=== PATIENT | male | born 1985 | race Caucasian/White ===

== ENCOUNTER → 2021-11-20 | Outpatient (CLI) | payer OTHER ==
[~2021-11-20] MED LIST: CEPH500 PO; CYCL10 PO; HYDACE5 PO; NAPR500 PO; OXYACE5T PO; PENVK500 PO; RXOXYACE PO; RXSULTRIDS PO; SULTRIDS PO
== END ==
LOC: LAB SHORT 14:57 → LAB 14:57 → LAB FUT 11-20 14:00 → EDSTATUS 11-20 14:00
DX: F11.20 Opioid dependence, uncomplicated (principal)
CPT/HCPCS: G0480

== ENCOUNTER 2023-07-15 13:28 | Emergency (ER) | payer OTHER ==
[~2023-07-15] VITALS: Ht 170.2 cm; Wt 131.5 kg
[2023-07-15 13:41] VITALS: BP 157/89
[2023-07-15] MEDS ORDERED: Ondansetron HCl 2 MG / ML 2ML Vial IV ONE (14:10)
== END 2023-07-15 14:44 | disposition left against medical advice (07) ==
LOC: ER 13:28
DX: R40.0 Somnolence (principal); R47.81 Slurred speech; F91.3 Oppositional defiant disorder; F17.210 Nicotine dependence, cigarettes, uncomplicated
CPT/HCPCS: 93005; 93010; 99285-25